=== PATIENT | female | born 1995 | race Caucasian/White ===

== ENCOUNTER 2019-02-26 19:50 | Emergency (ER) | payer OTHER ==
[~2019-02-26] VITALS: Ht 177.8 cm; Wt 163.3 kg
[2019-02-26 20:12] LABS: BILIRUBIN NEGATIVE (NEGATIVE); BLOOD NEGATIVE (NEGATIVE); CLARITY SL CLOUDY (CLEAR); COLOR YELLOW (YELLOW); GLUCOSE NEGATIVE (NEGATIVE); KETONE NEGATIVE (NEGATIVE); LEUKO ESTERASE NEGATIVE (NEGATIVE); NITRITE NEGATIVE (NEGATIVE); PH 6.5 (5.0-9.0); SPECIFIC GRAVITY 1.025 (1.005-1.030); UROBILINOGEN 0.2 E.U./dl (0.2-1.0)
[2019-02-26 20:18] LABS: BACTERIA TRACE; WBC 0-2 wbc/hpf (0-5)
[2019-02-26] MEDS ORDERED: CYCLOBENZAPRINE10 MG PO (22:32)
[2019-02-26] MEDS ORDERED: PREDNISONE20 M1 PO (22:32)
[2019-02-26] MEDS ORDERED: IBU800 MG PO (22:32)
== END 2019-02-26 22:39 | disposition home or self-care (01) ==
LOC: ED 19:50
PROVIDERS: Nurse Practitioner Family
DX: M54.6 Pain in thoracic spine (principal); M62.830 Muscle spasm of back; Z88.1 Allergy status to other antibiotic agents; X50.0XXA Overexertion from strenuous movement or load, initial encounter; Y93.89 Activity, other specified; Y92.89 Other specified places as the place of occurrence of the external cause; Y99.9 Unspecified external cause status

== ENCOUNTER 2019-04-01 15:28 | Emergency (ER) | payer OTHER ==
[~2019-04-01] VITALS: Ht 177.8 cm; Wt 163.3 kg
[~2019-04-01 15:28] MED LIST: CYCLOBENZAPRINE10 MG PO; IBU800 MG PO; PREDNISONE20 M1 PO
[2019-04-01] MEDS ORDERED: FLONASE ALLERG9.9 ML NAS (16:12)
[2019-04-01] MEDS ORDERED: Tobrex Ophth S2.5 ML OPH (16:12)
[2019-04-01] MEDS ORDERED: ZITHROMAX250 MG PO (16:12)
== END 2019-04-01 16:12 | disposition home or self-care (01) ==
LOC: ED 15:28
DX: J06.9 Acute upper respiratory infection, unspecified (principal); H10.9 Unspecified conjunctivitis; Z88.1 Allergy status to other antibiotic agents

== ENCOUNTER 2019-08-22 06:20 | Emergency (ER) | payer MEDICAID ==
[~2019-08-22 06:20] MED LIST changes: +FLONASE ALLERG9.9 ML NAS; +Tobrex Ophth S2.5 ML OPH; +ZITHROMAX250 MG PO
== END 2019-08-22 08:45 | disposition home or self-care (01) ==
LOC: ED 06:20
DX: R05 Cough (principal); J06.9 Acute upper respiratory infection, unspecified; M62.838 Other muscle spasm; Z79.899 Other long term (current) drug therapy; Z88.1 Allergy status to other antibiotic agents

== ENCOUNTER 2019-11-03 22:22 | Emergency (ER) | payer MEDICAID ==
[~2019-11-03] VITALS: Ht 177.8 cm; Wt 154.2 kg
[2019-11-04] MEDS ORDERED: TAMIFLU 75MG CA75 MG PO (01:20)
== END 2019-11-04 01:40 | disposition home or self-care (01) ==
LOC: ED 22:22
DX: R11.2 Nausea with vomiting, unspecified (principal); R05 Cough; R51 Headache; R50.9 Fever, unspecified; R09.89 Other specified symptoms and signs involving the circulatory and respiratory systems; J45.909 Unspecified asthma, uncomplicated; Z88.1 Allergy status to other antibiotic agents; Z79.899 Other long term (current) drug therapy; Z79.2 Long term (current) use of antibiotics

== ENCOUNTER 2020-01-23 18:17 | Emergency (ER) | payer OTHER, MEDICAID ==
[~2020-01-23] VITALS: Ht 177.8 cm; Wt 152.0 kg
[~2020-01-23 18:17] MED LIST changes: +TAMIFLU 75MG CA75 MG PO
== END 2020-01-23 19:30 | disposition left against medical advice (07) ==
LOC: ED 18:17
DX: M54.5 Low back pain (principal); M54.6 Pain in thoracic spine; Z88.1 Allergy status to other antibiotic agents; Z53.20 Procedure and treatment not carried out because of patient's decision for unspecified reasons; W18.11XA Fall from or off toilet without subsequent striking against object, initial encounter; Y93.89 Activity, other specified; Y92.89 Other specified places as the place of occurrence of the external cause; Y99.0 Civilian activity done for income or pay

== ENCOUNTER 2020-11-21 10:18 | Emergency (ER) | payer MEDICAID ==
[~2020-11-21] VITALS: Ht 177.8 cm; Wt 163.3 kg
[2020-11-21] MEDS ORDERED: SYMB160 INH (10:32)
[2020-11-21] MEDS ORDERED: CYCLOBENZAPRINE10 MG PO (10:57)
== END 2020-11-21 10:59 | disposition home or self-care (01) ==
LOC: ED 10:18
DX: S39.012A Strain of muscle, fascia and tendon of lower back, initial encounter (principal); S29.012A Strain of muscle and tendon of back wall of thorax, initial encounter; Z88.8 Allergy status to other drugs, medicaments and biological substances; Z79.899 Other long term (current) drug therapy; X58.XXXA Exposure to other specified factors, initial encounter; Y93.89 Activity, other specified; Y92.89 Other specified places as the place of occurrence of the external cause; Y99.8 Other external cause status

== ENCOUNTER 2021-05-07 15:49 | Emergency (ER) | payer MEDICAID ==
[~2021-05-07] VITALS: Ht 177.8 cm; Wt 165.6 kg
[~2021-05-07 15:49] MED LIST changes: +SYMB160 INH
[2021-05-07] MEDS ORDERED: IBUPROFEN600 MG PO (17:33)
[2021-05-07] MEDS ORDERED: AMOXICILLIN500 M2 PO (17:33)
[2021-05-07] MEDS ORDERED: Tobrex Ophth S2.5 ML OPH (17:43)
== END 2021-05-07 18:25 | disposition home or self-care (01) ==
LOC: ED 15:49
DX: H66.92 Otitis media, unspecified, left ear (principal); H60.62 Unspecified chronic otitis externa, left ear; Z88.1 Allergy status to other antibiotic agents

== ENCOUNTER 2021-09-19 09:40 | Emergency (ER) | payer MEDICAID ==
[~2021-09-19 09:40] MED LIST changes: +AMOXICILLIN500 M2 PO; +IBUPROFEN600 MG PO
[2021-09-19 11:47] LABS: BASO % 0.4 % (0.0-1.0); EOS # 0.1 10*3/uL (0.0-0.4); EOS % 1.8 % (1.0-4.0); HEMATOCRIT 43.9 % (37.0-47.0); LYMPH # 0.5 10*3/uL (1.3-4.4); LYMPH % 11.5 % (27.0-41.0); MEAN CELL VOLUME 91.5 fl (81.0-99.0); MEAN CORPUSCULAR HGB 29.6 pg (27.0-31.0); MEAN CORPUSCULAR HGB CONC 32.3 g/dl (33.0-37.0); MEAN PLATELET VOLUME 10.1 fl (9.6-12.3); MONO # 0.4 10*3/uL (0.1-1.0); MONO % 8.4 % (3.0-9.0); NEUT # 3.5 10*3/uL (2.3-7.9); NEUT % 77.9 % (47.0-73.0); PLATELET COUNT AUTOMATED 212 10*3/uL (130-400); WHITE BLOOD COUNT 4.5 10*3/uL (4.8-10.8)
[2021-09-19 12:04] LABS: ALBUMIN 3.4 gm/dl (3.1-4.5); ALKALINE PHOSPHATASE 58 U/L (45-117); BUN 13 mg/dl (7-24); CHLORIDE 111 mmol/L (98-107); CREATININE 0.92 mg/dL (0.55-1.02); POTASSIUM 4.6 mmol/L (3.5-5.1); SGOT/AST 22 IU/L (3-35); SGPT/ALT 53 U/L (12-78); SODIUM 140 mmol/L (136-145); TOTAL PROTEIN 7.2 gm/dL (6.4-8.2)
== END 2021-09-19 13:01 | disposition home or self-care (01) ==
LOC: ED 09:40
PROVIDERS: Nurse Practitioner Family
DX: B34.9 Viral infection, unspecified (principal); Z20.822 Contact with and (suspected) exposure to COVID-19; Z88.1 Allergy status to other antibiotic agents

== ENCOUNTER → 2023-02-02 | Outpatient (CLI) | payer BC | END | disposition home or self-care (01) | LOC: RAD 12:52 | PROVIDERS: ATTEND Nurse Practitioner Family | DX: M25.552 Pain in left hip (principal); M54.50 Low back pain, unspecified ==

== ENCOUNTER → 2023-04-05 | Outpatient (CLI) | payer BC | END | disposition home or self-care (01) | LOC: US 14:31 | PROVIDERS: ATTEND Nurse Practitioner Family | DX: Z30.431 Encounter for routine checking of intrauterine contraceptive device (principal) ==

== ENCOUNTER → 2024-03-14 | Outpatient (CLI) | payer BC | END | disposition home or self-care (01) | LOC: RAD 14:17 | PROVIDERS: ATTEND Nurse Practitioner | DX: M25.561 Pain in right knee (principal) ==

== ENCOUNTER 2024-04-16 19:39 | Emergency (ER) | payer BC ==
[~2024-04-16] VITALS: Ht 177.8 cm; Wt 181.4 kg
[2024-04-16] MEDS ORDERED: methylPREDNISolone sod succ 125 MG VIAL IM ONE (20:35)
[2024-04-16] MEDS ORDERED: PREDNISONE20 M1 PO (20:36)
== END 2024-04-16 20:42 | disposition home or self-care (01) ==
LOC: ED 19:39
DX: M72.2 Plantar fascial fibromatosis (principal); E66.9 Obesity, unspecified; Z88.8 Allergy status to other drugs, medicaments and biological substances; Z88.1 Allergy status to other antibiotic agents; Z88.2 Allergy status to sulfonamides; Z79.2 Long term (current) use of antibiotics; Z79.899 Other long term (current) drug therapy; Z68.30 Body mass index [BMI] 30.0-30.9, adult